=== PATIENT | female | born 1945 | race Caucasian/White ===

== ENCOUNTER 2021-11-26 03:02 | Emergency (ER) | payer OTHER ==
[2021-11-26 03:48] LABS: BASOPHIL 0.3 % (0-2); EOSINOPHIL 0.1 % (0-7); HCT 45.8 % (37.0-47.0); HGB 15.3 g/dl (12.5-16.0); LYMPHOCYTE 8.6 % (15-48); MCH 29.2 pg (25.0-31.0); MCHC 33.4 g/dL (32.0-36.0); MCV 87.4 fL (78.0-100.0); MONOCYTE 5.8 % (0-12); MPV 9.8 fL (6.0-9.5); NEUTROPHIL 84.8 % (41-80); NRBC 0; PLT 245 K/uL (150-400); RBC 5.24 M/uL (4.20-5.40); RDW 12.9 % (11.5-14.0); WBC 15.3 K/uL (4.0-10.5)
[2021-11-26 03:55] LABS: INR 1.12 (0.9-1.2); PROTHROMBIN TIME 13.8 SECONDS (11.8-13.4); PTT 28.4 SECONDS (24.4-34.7)
[2021-11-26 04:09] LABS: BUN/CREAT RATIO (CALC) 23.5 RATIO; C-REACTIVE PROTEIN 3.4 mg/dL (<=0.90); CREATININE 0.81 mg/dL (0.51-0.95); POTASSIUM 3.5 mmol/L (3.5-5.1)
== END 2021-11-26 10:25 | disposition home or self-care (01) ==
LOC: FER 03:02
PROVIDERS: Emergency Medicine Emergency Medical Services
DX: R42 Dizziness and giddiness (principal); R53.1 Weakness; E11.9 Type 2 diabetes mellitus without complications; Z20.822 Contact with and (suspected) exposure to COVID-19; Z88.8 Allergy status to other drugs, medicaments and biological substances
CPT/HCPCS: 36415; 70450; 70551; 71045; 80048; 82550; 84484; 85025; 85610; 85730; 86140; 93005; J7030; Q9967; U0002